=== PATIENT | male | born 1985 | race Caucasian/White ===

== ENCOUNTER 2017-10-15 12:55 | Observation (INO) ==
[2017-10-15] MEDS ORDERED: *HR* Labetalol 100 MG/20 ML MDV IVP ONE (13:10)
[2017-10-15] MEDS ORDERED: *HR* Labetalol 20 MG/4 ML SYRINGE IVP ONE (13:24)
[2017-10-15 13:35] LABS: Basophils # 0.1 K/mcL (0.0-0.2); Eosinophils # 0.2 K/mcL (0.0-0.6); Eosinophils % 2.4 %; Hemoglobin 14.9 g/dL (12.9-16.9); Immature Granulocytes % 0.8 % (0-4); Lymphocytes # 1.3 K/mcL (0.6-4.6); Lymphocytes % 18.8 %; Mean Corpuscular HGB Conc 33.9 g/dL (31.6-35.5); Mean Corpuscular Hemoglobin 29.6 pg (28.0-33.3); Mean Corpuscular Volume 87.3 fL (83.0-100.0); Mean Platelet Volume 9.8 fL (9.4-12.4); Monocytes # 0.7 K/mcL (0.0-1.3); Monocytes % 9.5 %; Neutrophils # 4.8 K/mcL (1.6-8.9); Platelet Count 269 K/mcL (140-400); Red Blood Count 5.04 M/mcL (4.19-5.50); Red Cell Distribution Width 12.3 % (11.5-14.5); Segmented Neutrophils % 67.5 %
[2017-10-15 13:42] LABS: INR 1.1; Prothrombin Time 11.3 Seconds (9.4-12.1)
[2017-10-15 13:44] LABS: Activated Partial Thrombo Time 30.4 Seconds (26.0-36.0)
[2017-10-15 14:05] LABS: Troponin I < 0.03 ng/mL (< 0.04)
[2017-10-15 14:06] LABS: BUN/Creatinine Ratio 13 (6-26); Blood Urea Nitrogen 12 mg/dL (6-20); Calcium 9.6 mg/dL (8.6-10.3); Carbon Dioxide 25 mEq/L (23-29); Chloride 104 mEq/L (98-107); Glucose 94 mg/dL (70-105); Osmolality,Calculated 286 (280-300); Sodium 138 mEq/L (136-145); eGFR For African Americans > 60 (> 60); eGFR For Non-African Americans > 60 (> 60)
[2017-10-15 14:23] LABS: Bilirubin,Urine Negative (Negative); Blood,Urine Negative (Negative); Clarity,Urine Clear (Clear); Color,Urine Yellow (Yellow); Glucose,Urine (UA) Normal (Normal); Ketones,Urine Negative (Negative); Leukocyte Esterase,Urine Negative (Negative); Nitrite,Urine Negative (Negative); Protein,Urine Negative (Neg-Trace); Specific Gravity,Urine 1.017 (1.010-1.025); Urobilinogen,Urine Normal (Normal)
--- NOTE | 2017-10-15 15:17 | Emergency Department Note ---
Disposition Clinical Impression: Elevated blood pressure reading TIA (transient ischemic attack) Qualifiers: Transient cerebral ischemia type: unspecified Qualified Code(s): G45.9 - Transient cerebral ischemic attack, unspecified Disposition: Admitted As Inpatient Referrals: NONE,PCP [Primary Care Provider] - Lary Miguel [Family Provider] - Forms: ED Satisfaction Letter General Adult HPI - General Chief complaint: ED Neuro Symptoms/Deficit Stated complaint: R arm numbess/vision problems Time Seen by Provider: 10/15/17 13:01 Source: patient, family Mode of arrival: ambulatory Limitations: no limitations Nursing Notes Reviewed: Yes Vital Signs Reviewed: Yes - History of Present Illness HPI Narrative: Patient is a 31-year-old white male with a history of Trotter's palsy and hypertension who presents to the emergency department today brought by family after he was complaining of right arm numbness and "just not feeling right". Patient states he was driving his car to the store and while driving noticed some numbness and tingling in his right upper extremity involving the entire right arm. Patient states he moved it around rested up on the steering wheel with really no improvement in the symptoms. Time of onset he thinks was around 11 AM today. Patient states he got to the store ambulated into the store without difficulty walking and reports just not feeling right but unable to describe anything further. Patient states he had an mild generalized headache at the time but no acute visual changes. Patient states he has a history of Trotter's palsy and does have a noticeable droop to the corner of his left mouth but states he has had this for quite some time he always has facial droop on his left denies any slurred speech and states that he has had visual issues in that left eye since the onset of his Trotter's palsy. This is something that he has had evaluated by a number of doctors. Patient denies any significant change from baseline today. Patient denies any chest pain pressure or heaviness , no shortness of breath, no diaphoresis, no lightheadedness or syncope, no vertigo, no weakness of his extremities no difficulty with ambulation. Patient contacted some family members and they drove into the emergency department and patient reports it is about an hour drive from his home to the emergency department and in that timeframe his symptoms had completely resolved. Patient does not report any current arm numbness or tingling and no weakness. Speech is clear and he is otherwise asymptomatic. Pain Scale: 0 - Related Data Allergies Allergy/AdvReac Type Severity Reaction Status Date / Time No Known Allergies Allergy Verified 10/15/17 13:23 All systems ED: reviewed and negative except as stated. Review of Systems: As Per HPI Past Medical History - Past Medical History Medical history: Reports: hypertension - Social History Smoking Status: Former smoker Alcohol use: Reports: none Drug use: Reports: none Physical Exam - General Limitations: no limitations General appearance: alert, in no apparent distress - Head Head exam: atraumatic, normocephalic, normal inspection - Eye Eye exam: Present: normal appearance, PERRL, EOMI - ENT ENT exam: normal exam, normal oropharynx, mucous membranes moist - Neck Neck exam: Present: normal inspection, full ROM - Chest Chest inspection: Present: normal inspection, symmetric chest wall rise - Respiratory Respiratory exam: Present: normal lung sounds bilaterally. Absent: respiratory distress - Cardiovascular Cardiovascular exam: Present: regular rate, normal rhythm, normal heart sounds - Abdominal Exam Abdominal exam: Present: soft, Non-Tender, normal bowel sounds - Extremities Exam Extremities exam: Present: normal inspection. Absent: tenderness, pedal edema, calf tenderness - Back Exam Back exam: Present: normal inspection. Absent: CVA tenderness (R), CVA tenderness (L) - Neurological Exam Neurological exam: Present: alert, oriented X3, CN II-XII intact, normal gait, reflexes normal, other (Patient with left-sided facial droop secondary to previously known Trotter's palsy. Does involve the left forehead.). Absent: motor sensory deficit - Psychiatric Psychiatric exam: Present: normal affect, normal mood - Skin Skin exam: Present: warm, dry, intact, normal color. Absent: diaphoresis Course Course Narrative: She is a 31-year-old white male with history of hypertension and Trotter's palsy who presents to the emergency Department with resolved right upper extremity numbness and tingling. Patient with significantly elevated blood pressure on arrival and when asking about this he does admit to a history of hypertension but states he has not been on his medications because they "never worked". Patient received a dose of labetalol IV and had a nice 25% reduction in MEP and has remained with stable vital signs. Patient has remained asymptomatic and serial neurologic exams show no acute findings. Patient's head CT and laboratory evaluation was within normal limits. We will administer aspirin to the patient and admit the patient for TIA and elevated blood pressure. Vital Signs Temperature 0 F L 10/15/17 13:02 Pulse Rate 89 10/15/17 13:02 Respiratory Rate 18 10/15/17 13:02 Blood Pressure 172/120 10/15/17 13:02 O2 Sat by Pulse Oximetry 99 10/15/17 13:02 Temperature 0 F L 10/15/17 13:02 Pulse Rate 80 10/15/17 13:48 Respiratory Rate 18 10/15/17 13:48 Blood Pressure 167/99 10/15/17 13:48 O2 Sat by Pulse Oximetry 98 10/15/17 13:48 Oxygen Delivery Oxygen Delivery Room Air Medical Decision Making - Medical Records Medical records reviewed: Yes I reviewed the patient's medical records. - Lab Data Lab results reviewed: Yes I reviewed the patient's lab results. Result diagrams: 10/15/17 13:25 10/15/17 13:25 Lab Results 10/15/17 10/15/17 10/15/17 Range/Units 13:25 13:25 13:25 WBC 7.1 (4.3-11.1) K/mcL RBC 5.04 (4.19-5.50) M/mcL Hgb 14.9 (12.9-16.9) g/dL Hct 44.0 (37.5-50.1) % MCV 87.3 (83.0-100.0) fL MCH 29.6 (28.0-33.3) pg MCHC 33.9 (31.6-35.5) g/dL RDW 12.3 (11.5-14.5) % Plt Count 269 (140-400) K/mcL MPV 9.8 (9.4-12.4) fL Immature Gran % 0.8 (0-4) % Seg Neutrophils % 67.5 % Lymphocytes % 18.8 % Monocytes % 9.5 % Eosinophils % 2.4 % Basophils % 1.0 % Neutrophils # 4.8 (1.6-8.9) K/mcL Lymphocytes # 1.3 (0.6-4.6) K/mcL Monocytes # 0.7 (0.0-1.3) K/mcL Eosinophils # 0.2 (0.0-0.6) K/mcL Basophils # 0.1 (0.0-0.2) K/mcL PT 11.3 (9.4-12.1) Seconds INR 1.1 APTT 30.4 (26.0-36.0) Seconds Sodium 138 (136-145) mEq/L Potassium 4.0 (3.5-5.1) mEq/L Chloride 104 (98-107) mEq/L Carbon Dioxide 25 (23-29) mEq/L BUN 12 (6-20) mg/dL Creatinine 0.94 (0.70-1.30) mg/dL Est GFR ( Amer) > 60 (> 60) Est GFR (Non-Af Amer) > 60 (> 60) BUN/Creatinine Ratio 13 (6-26) Glucose 94 (70-105) mg/dL Calculated Osmolality 286 (280-300) Calcium 9.6 (8.6-10.3) mg/dL Troponin I < 0.03 (< 0.04) ng/mL Urine Color (Yellow) Urine Clarity (Clear) Urine pH (5.0-8.0) pH Units Ur Specific [place] (1.010-1.025) Urine Protein (Neg-Trace) mg/dL Urine Glucose (UA) (Normal) mg/dL Urine Ketones (Negative) mg/dL Urine Blood (Negative) Urine Nitrite (Negative) Urine Bilirubin (Negative) Urine Urobilinogen (Normal) mg/dL Ur Leukocyte Esterase (Negative) Ur Culture Indicated? (NO) 10/15/17 Range/Units 14:01 WBC (4.3-11.1) K/mcL RBC (4.19-5.50) M/mcL Hgb (12.9-16.9) g/dL Hct (37.5-50.1) % MCV (83.0-100.0) fL MCH (28.0-33.3) pg MCHC (31.6-35.5) g/dL RDW (11.5-14.5) % Plt Count (140-400) K/mcL MPV (9.4-12.4) fL Immature Gran % (0-4) % Seg Neutrophils % % Lymphocytes % % Monocytes % % Eosinophils % % Basophils % % Neutrophils # (1.6-8.9) K/mcL Lymphocytes # (0.6-4.6) K/mcL Monocytes # (0.0-1.3) K/mcL Eosinophils # (0.0-0.6) K/mcL Basophils # (0.0-0.2) K/mcL PT (9.4-12.1) Seconds INR APTT (26.0-36.0) Seconds Sodium (136-145) mEq/L Potassium (3.5-5.1) mEq/L Chloride (98-107) mEq/L Carbon Dioxide (23-29) mEq/L BUN (6-20) mg/dL Creatinine (0.70-1.30) mg/dL Est GFR ( Amer) (> 60) Est GFR (Non-Af Amer) (> 60) BUN/Creatinine Ratio (6-26) Glucose (70-105) mg/dL Calculated Osmolality (280-300) Calcium (8.6-10.3) mg/dL Troponin I (< 0.04) ng/mL Urine Color Yellow (Yellow) Urine Clarity Clear (Clear) Urine pH 6.0 (5.0-8.0) pH Units Ur Specific [place] 1.017 (1.010-1.025) Urine Protein Negative (Neg-Trace) mg/dL Urine Glucose (UA) Normal (Normal) mg/dL Urine Ketones Negative (Negative) mg/dL Urine Blood Negative (Negative) Urine Nitrite Negative (Negative) Urine Bilirubin Negative (Negative) Urine Urobilinogen Normal (Normal) mg/dL Ur Leukocyte Esterase Negative (Negative) Ur Culture Indicated? NO (NO) - Radiology Data Radiology results reviewed: Yes I reviewed the patient's radiology results. Chest X-Ray 10/15/17 13:11 IMPRESSION: No acute process. D/ / Geovani Florentino MD / Geovani Florentino MD Interpreting Provider: Geovani Florentino MD Head CT 10/15/17 13:16 IMPRESSION: No acute intracranial abnormality. D/ / Nash Archuleta MD / Nash Archuleta MD Interpreting Provider: Nash Archuleta MD - EKG Data EKG #1 EKG attestation: Yes I reviewed and interpreted this EKG. EKG results narrative: EKG interpreted by myself without the benefit of formal cardiology interpretation shows a normal sinus rhythm at 66 bpm with no acute ST or T-wave changes.
[2017-10-15] MEDS ORDERED: Aspirin 325 MG TABLET PO ONE (15:26)
[2017-10-15] MEDS ORDERED: *HR* HYDROcodone/Acet 5/325 mg TABLET PO PRN (16:24)
[2017-10-15] MEDS ORDERED: Naloxone 0.4 MG/ML INJ IVP PRN (16:24)
[2017-10-15] MEDS ORDERED: Acetaminophen 325 MG TABLET PO PRN (16:24)
[2017-10-15] MEDS ORDERED: *HR* Heparin 5,000 UNIT/ML VIAL SQ ONE (16:28)
--- NOTE | 2017-10-15 16:34 | Internal Med History&Physical ---
<CiroManuela Acosta - Last Filed: 10/15/17 16:31> Date of Encounter: 10/15/17 Time of Encounter: 16:31 Assessment and Plan (1) Arm paresthesia, right Current visit: Yes Status: Acute with associated blurred vision and generalized weakness (blurred vision could be secondary to Lasix surgery). Symptoms resolved prior to arrival. Received ASA in ED. Head CT non-acute. Neurologically intact. Brain MRI, echocardiogram , lipid panel, Hgb A1c, TSH pending. Continue ASA (2) Elevated blood pressure reading Current visit: Yes Status: Acute hx HTN and suppose to be on VASHTI. Patient self discontinued as she did not feel was helping the blood pressure. SBP and 170s on arrival. Possibly contributing to presenting symptoms. Received IV labetalol in ED. Hold on further antihypertensives until acute CVA rule out out to allow for permissive hypertension. 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 No evidence of exacerbation. (4) DVT prophylaxis Current visit: Yes Status: Acute heparin Internal Medicine - H&P: HPI Chief complaint: right arm numbness, blurred vision Admitted From: Home Plans for Post Hospital Care: Home History of present illness: Mr. Abraham is a 31 year old male with PMH hypertension and remote Trotter's palsy presented to [facility] on 10/15 18 with complaints of blurred vision, right arm numbness and general weakness. He was placed in observation status for further workup and treatment. Information obtained from chart review and patient report. Patient says he was in his usual state of health until 11:00 this morning when he experienced acute onset of right arm numbness/tingling, blurred vision and a feeling of feeling drained/heavy. Symptoms lasted approximately 1-1/2 hours to 2 hours and resolved without intervention. No alleviating or aggravating factors. Still has blurred vision on my exam but overall improved. No slurred speech, no numbness/tingling or extremity weakness Past Med Surg Social Fam HX - Past Medical History Medical history: hypertension - Past Surgical History Surgical History: orthopedic, other - Social History Smoking Status: Former smoker Alcohol use: none Drug use: none - Additional Family History Additional family history: family hx CVA on maternal and paternal side Internal Medicine - H&P: Meds No Known Home Drugs 10/15/17 [History] 3 Allergy/AdvReac Type Severity Reaction Status Date / Time No Known Allergies Allergy Verified 10/15/17 13:23 All Systems PM: A 10-system review of systems was performed and is negative for pertinent findings except as documented above in the HPI. - Constitutional Constitutional: no chills, no fever(s), no night sweats - EENT Eyes: no change in vision, no discharge, no pain, no photophobia Ears: no ear discharge, no ear pain, no tinnitus Nose, mouth and throat: no dysphagia, no nasal discharge, no neck pain, no sore throat - Cardiovascular Cardiovascular ROS IM: no chest pain, no diaphoresis, no dyspnea, no lightheadedness, no palpitations, no syncope - Respiratory Respiratory: no cough, no dyspnea, no wheezing, no excessive phlegm production - Gastrointestinal Gastrointestinal: no abdominal pain, no diarrhea, no hematemesis, no hematochezia, no melena, no nausea, no vomiting - Musculoskeletal Musculoskeletal ROS IM: no numbness, no tingling - Integumentary Integumentary IM: no rash, no unusual bruising - Neurological Neurological ROS: numbness, paresthesias, weakness, no confusion, no convulsions , no focal weakness, no tingling, no tremor(s) Additional comments: right arm numbness - Hematologic/Lymphatic Hematologic/Lymphatic: no easy bruising - Constitutional Vitals: Temp Pulse Resp BP Pulse Ox 0 F L 71 15 135/92 99 10/15/17 13:02 10/15/17 15:40 10/15/17 15:40 10/15/17 15:40 10/15/17 15:40 General appearance: Present: A&O X 3, no acute distress - Head Head exam: Present: atraumatic, normocephalic - Eye Eye exam: Present: PERRL, conjuntiva pink, sclera anicteric Pupils: Present: PERRL - Neck Neck exam general surgery: Present: supple, trachea midline. Absent: lymphadenopathy - Respiratory Respiratory exam: Present: CTAB. Absent: accessory muscle use, rales, rhonchi, wheezes - Cardiovascular Cardiovascular exam: Present: RRR, +S1, +S2. Absent: diastolic murmur, gallop, rubs, systolic murmur - GI/Abdominal GI/Abdominal exam: Present: normal bowel sounds, soft, no peritoneal signs. Absent: distended, tenderness - Extremities Exam Extremities exam: Present: warm, radial pulses palpable and symmetrical. Absent : calf tenderness, cyanotic, pedal edema - Neurological Exam Neurological exam: Present: CN II-XII intact, oriented X3, no focal deficits. Absent: pronater drift, facial droop, speech deficit - Skin Skin exam: Present: dry, intact Internal Med - H&P Results - Labs CBC & Chem 7: 10/15/17 13:25 10/15/17 13:25 <Alvino Conrad - Last Filed: 10/15/17 20:05> Date of Encounter: 10/15/17 Internal Medicine - H&P: HPI History of present illness: Mr. Abraham is a 31 year old male All Systems PM: A 10-system review of systems was performed and is negative for pertinent findings except as documented above in the HPI. - Constitutional Vitals: Temp Pulse Resp BP Pulse Ox 0 F L 71 14 145/98 99 10/15/17 13:02 10/15/17 15:40 10/15/17 18:13 10/15/17 18:13 10/15/17 15:40 Internal Med - H&P Results - Labs CBC & Chem 7: 10/15/17 13:25 10/15/17 13:25 - Impressions ITS Impressions Brain MRI 10/15/17 16:27 IMPRESSION: No acute infarct, intracranial hemorrhage, or significant mass effect. D/ / 10/15/2017 17:21:34 George Perez MD / jenniffer Interpreting Provider: George Perez MD - Attending Attestation I have personally performed a face to face evaluation on this patient. I have reviewed and agree with the care plan. History and Exam by me shows: Patient presents with right arm numbness and weakness. He states he is right- handed. He appears to favor his left hand currently. He has chronic left facial droop secondary to Trotter's palsy. He is awake alert oriented 3. There is no speech deficit. CT head was negative. Assessment: TIA Plan: Admit to medical service. CVA workup. Alvino Conrad MD
--- NOTE | 2017-10-15 20:32 | Neurology - Consult Note ---
Date of Encounter: 10/15/17 Time of Encounter: 19:30 Assessment and Plan (1) TIA (transient ischemic attack) Current Visit: Yes Status: Acute This is a 29 year old young man with HTN morbid obesity who developed acute onset of blurry vision, and right arm paresthesia lasting less than few hours with total resolution. Symptoms are consistent with TIA. Agree with CVA/TIA work up due to the patient having multiple risk factors including HTN, obesity. Differential diagnosis include anterior circulation TIA, focal neurological deficits related to elevated blood pressure. Agree with starting him on aspirin daily MRI of brain, echo and carotid artery duplex study. Risk factor modification for CVA. check lipid panel and treat with statin if necessary. Patient is obese and also has gasping for air episode in sleep and he should consult PCP for getting a sleep study to assess probable untreated CELSO as an outpatient. total time spent on this patient is approximately 30 minutes Qualifiers: Transient cerebral ischemia type: unspecified Qualified Code(s): G45.9 - Transient cerebral ischemic attack, unspecified History of Present Illness Chief complaint: right arm paresthesia and blurry vision HPI: Mr. Abraham is a 31 year old male with PMH significant for HTN, obesity, history of Trotter's palsy who developed acute onset of right arm numbness, tingling while driving associated with also blurry vision. This occurred this AM around 11 am while he was driving he felt his right arm is numb and he also has blurry vision to both eyes. symptoms lasted about half an hour and by the time he arrived ER his symptoms totally resolved. CT of head showed no acute intracranial abnormality. He was admitted for work up for CVA/TIA. He does have medical history of HTN. He is obese and also reports gasping for air during sleep. He has prior Trotter's palsy during . strong family history of Trotter's palsy reported. he reports one episode of seeing vertigo in the past Past Med Surg Social Fam HX - Past Medical History Medical history: hypertension - Past Surgical History Surgical History: orthopedic, other - Social History Smoking Status: Former smoker Alcohol use: none Drug use: none Medications and Allergies No Known Home Drugs 10/15/17 [History] 3 Allergy/AdvReac Type Severity Reaction Status Date / Time No Known Allergies Allergy Verified 10/15/17 13:23 All Systems: The remainder of the systems were reviewed and are negative Physical Examination - Vital Signs Vital Signs: Initial Vital Signs Temp Pulse Resp BP Pulse Ox 0 F L 89 18 172/120 99 10/15/17 13:02 10/15/17 13:02 10/15/17 13:02 10/15/17 13:02 10/15/17 13:02 - Constitutional General appearance: comfortable - Neurologic Detailed motor examination: full strength in all major muscle groups Motor examination - right side: 12/16: deltoids, biceps, triceps, wrist flexion, wrist extension, security systems integrator, hip flexors, tibialis Anterior, quadriceps, toe extension (EHL), plantarflexion Motor examination - left side: 55: deltoids, biceps, triceps, wrist flexion, wrist extension, hip flexors, security systems integrator, quadriceps, tibialis Anterior, toe extension (EHL), plantarflexion Reflexes: Biceps: 2+, Triceps: 2+, Brachioradialis: 2+, Patella: 2+, Achilles: 2 + Mental Status Examination: awake, alert, oriented to person, oriented to place, oriented to time, follows commands appropriately, answers questions appropriately, no agnosia, no aphasia, no aproxia Cranial nerve examination: PERRL, EOMI, visual loco intact, corneal reflexes brisk symmetrically, sensory to face intact, mastication intact, no facial asymmetry is present, no dysarthria, hearing is intact symmetrically, soft palate elevates bilaterally upon phonation, gag reflex intact, flexes SCM and trapezius muscles symmetrically with full power, tongue protrudes midline, no atrophy or facial fasiculations present Cerebellar examination: no dysmetria, performs finger to nose and heel to gibson symmetrically without ataxia, no gait ataxia, no truncal ataxia, no difficulty with rapid alternating movements Results - Laboratory Findings CBC and BMP: 10/15/17 13:25 10/15/17 13:25 - Diagnostic Findings Additional findings: MR/MR head/brain wo con IMPRESSION: No acute infarct, intracranial hemorrhage, or significant mass effect. CT/CT head/brain wo con IMPRESSION: No acute intracranial abnormality. Consult Discharge Plan - Plan Referrals: NONE,PCP [Primary Care Provider] - Lary Miguel [Family Provider] -
[2017-10-16 05:33] LABS: Hematocrit 42.6 % (37.5-50.1); Hemoglobin 14.7 g/dL (12.9-16.9); Mean Corpuscular HGB Conc 34.5 g/dL (31.6-35.5); Mean Corpuscular Hemoglobin 30.1 pg (28.0-33.3); Mean Corpuscular Volume 87.1 fL (83.0-100.0); Platelet Count 261 K/mcL (140-400); Red Blood Count 4.89 M/mcL (4.19-5.50); Red Cell Distribution Width 12.4 % (11.5-14.5)
[2017-10-16 05:44] LABS: BUN/Creatinine Ratio 12 (6-26); Blood Urea Nitrogen 11 mg/dL (6-20); Calcium 9.2 mg/dL (8.6-10.3); Carbon Dioxide 24 mEq/L (23-29); Chloride 105 mEq/L (98-107); Chol/HDL Ratio 7.5 (0-4.9); Cholesterol 209 mg/dL (< 200); Glucose 90 mg/dL (70-105); HDL Cholesterol 28 mg/dL (40-59); LDL Cholesterol,Calculated 156 mg/dL (0-99); Osmolality,Calculated 287 (280-300); Potassium 3.5 mEq/L (3.5-5.1); Sodium 139 mEq/L (136-145); Triglycerides 123 mg/dL (< 150); eGFR For African Americans > 60 (> 60); eGFR For Non-African Americans > 60 (> 60)
[2017-10-16] MEDS ORDERED: Aspirin Enteric Coated 81 MG Tablet PO SCH (09:00)
--- NOTE | 2017-10-16 09:00 | Neurology Progress Note ---
<Xiang Martinez - Last Filed: 10/16/17 11:02> Date of Encounter: 10/16/17 Time of Encounter: 09:00 Assessment and Plan (1) TIA (transient ischemic attack) Current Visit: Yes Status: Acute Patient's symptoms correlate with potential TIA, risk factors include hypertension and obesity and possible sleep apnea. MRI of the brain is negative , echocardiogram demonstrates ejection fraction of 65%, mild diastolic dysfunction, no PFO. CT of the brain without concerning findings. Continue evaluation for potential cardiac arrhythmia such as proximal atrial fibrillation should be evaluated. Patient appears at baseline with no neurologic deficits at this time. It is important that Mr. Abraham establishes care with a primary care provider and undergoes treatment of his chronic medical conditions. Qualifiers: Transient cerebral ischemia type: unspecified Qualified Code(s): G45.9 - Transient cerebral ischemic attack, unspecified (2) Arm paresthesia, right Current Visit: Yes Status: Acute Resolved. Subjective Principal diagnosis: Right upper extremity weakness, visual changes Interval history: Mr. 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 He has known past medical history of hypertension which she currently is not taking any medications for, possible sleep apnea, denies any history of smoking. He feels that his right upper extremity strength is regained its normal strength with minimal tingling in his fingertips and no motor deficits. Regarding his visual changes he thinks that they might be more chronic in nature , history of Lasix eye surgery and revision on the right eye twice with occasional blurring on the left. Patient denies any history of stroke, atrial fibrillation known diagnosis, or cardiac defects. I will along discussion regarding treatment of his hypertension and sleep study for potential sleep apnea as preventative measures. Mr. Abraham demonstrates understanding of the importance of treatment of his chronic medical conditions. His family at bedside is supportive, They are requesting carotid Dopplers for complete workup of his symptoms. Objective - Constitutional Vitals: Temp Pulse Resp BP Pulse Ox 98.4 F 66 16 128/79 99 10/16/17 06:52 10/16/17 06:52 10/16/17 06:52 10/16/17 06:52 10/16/17 06:52 General appearance: Present: cooperative, A&O X 3, no acute distress, answers questions appropriately - Head Head exam: Present: atraumatic, normocephalic - Eye Eye exam: Present: PERRL, conjuntiva pink, sclera anicteric Pupils: Present: PERRL - Extremities Exam Extremities exam: Present: warm, radial pulses palpable and symmetrical. Absent : calf tenderness, cyanotic, pedal edema - Neurological Exam Sensorimotor examination: Present: intact Motor Examination: Present: full strength in all major muscle groups Motor examination - right side: 5/5: deltoids, biceps, triceps, wrist flexion, wrist extension, electro winning operator, hip flexors, tibialis Anterior, quadriceps, toe extension (EHL), plantarflexion Motor examination - left side: 5/5: deltoids, biceps, triceps, wrist flexion, wrist extension, hip flexors, electro winning operator, quadriceps, tibialis Anterior, toe extension (EHL), plantarflexion Sensation intact: Present: intact Reflex and gait examination: intact Reflexes: Biceps: 2+, Triceps: 2+, Brachioradialis: 2+, Patella: 2+, Achilles: 2 + Mental Status Examination: Present: awake, alert, oriented to person, oriented to place, oriented to time, follows commands appropriately, answers questions appropriately, no agnosia, no aphasia, no aproxia Cranial nerve examination: Present: PERRL, EOMI, visual loco intact, corneal reflexes brisk symmetrically, sensory to face intact, mastication intact, no facial asymmetry is present, no dysarthria, hearing is intact symmetrically, soft palate elevates bilaterally upon phonation, gag reflex intact, flexes SCM and trapezius muscles symmetrically with full power, tongue protrudes midline, no atrophy or facial fasiculations present Cranial Nerve Exam: 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.) Cerebellar examination: Present: no dysmetria, performs finger to nose and heel to gibson symmetrically without ataxia, no gait ataxia, no truncal ataxia, no difficulty with rapid alternating movements Results - Laboratory Findings CBC and BMP: 10/16/17 04:05 10/16/17 04:05 Abnormal lab findings: Abnormal lab results Cholesterol 209 mg/dL (< 200) H 10/16/17 04:05 LDL Cholesterol, Calc 156 mg/dL (0-99) H 10/16/17 04:05 HDL Cholesterol 28 mg/dL (40-59) L 10/16/17 04:05 Cholesterol/HDL Ratio 7.5 (0-4.9) H 10/16/17 04:05 Consult Discharge Plan - Plan Instructions: Sleep Apnea Syndrome (DC), Hyperlipidemia (DC) Referrals: NONE,PCP [Primary Care Provider] - <Karina Lopez I - Last Filed: 10/16/17 17:27> Date of Encounter: 10/16/17 Assessment and Plan (1) TIA (transient ischemic attack) Current Visit: Yes Status: Acute I examined this patient and my medical decision-making was reviewed with the Resident Physician, I agree with the documented findings, disposition and treatment plan as described except to the extent set forth below Though there was a concern that symptoms could be related to a TIA but apparently did not have much risk factors for a TIA other possibility that this could be related to elevated blood pressure or could be a migrainous phenomenon. At this time it is not clear that indeed it was a TIA or not. He is getting a stroke workup awaits carotid duplex echo is negative MRI of the brain is negative. Recommend lifestyle modification and follow-up with neurology as an outpatient with Dr. Gibson in 4-6 weeks Karina Lopez MD Qualifiers: Transient cerebral ischemia type: unspecified Qualified Code(s): G45.9 - Transient cerebral ischemic attack, unspecified Objective - Constitutional Vitals: Temp Pulse Resp BP Pulse Ox 98.7 F 86 16 130/75 99 10/16/17 15:00 10/16/17 15:00 10/16/17 15:00 10/16/17 15:00 10/16/17 15:00 Results - Laboratory Findings CBC and BMP: 10/16/17 04:05 10/16/17 04:05 Abnormal lab findings: Abnormal lab results Cholesterol 209 mg/dL (< 200) H 10/16/17 04:05 LDL Cholesterol, Calc 156 mg/dL (0-99) H 10/16/17 04:05 HDL Cholesterol 28 mg/dL (40-59) L 10/16/17 04:05 Cholesterol/HDL Ratio 7.5 (0-4.9) H 10/16/17 04:05
[2017-10-16 11:50] LABS: Hemoglobin A1C 5.1 %
[2017-10-16] MEDS ORDERED: *HR* Heparin 5,000 UNIT/ML VIAL SQ SCH (14:00)
[2017-10-16 15:13] VITALS: BP 130/75
--- NOTE | 2017-10-16 15:33 | Discharge Summary ---
- NOTES TO OUTPATIENT PROVIDER Notes to Outpatient Provider: Recommend outpatient sleep study. Recommend repeating lipid panel in 3-6 months. Orders not resulted at time of discharge: Pending orders 10/16/17 10:39 EV carotid duplex imaging BI Stat Date of Encounter: 10/16/17 Time of Encounter: 15:31 - Discharge Diagnosis (1) Arm paresthesia, right Priority: Primary Status: Resolved (2) Elevated blood pressure reading Priority: Primary Status: Acute (3) History of Trotter's palsy Priority: Secondary Status: Chronic Hospital course: Mr. Abraham is a 31 year old male with past medical history hypertension and Trotter 's palsy presented to [facility] on 10/15/17 with complaints of right arm paresthesia and blurred vision. He was placed in observation status for CVA rule out. He underwent head CT which was unremarkable, brain MRI without evidence of acute infarct or ischemia. TTE with preserved EF, no wall motion abnormalities; no PFO or cardiac source of emboli. Bilateral carotid dopplers with non-stenotic plaque bilaterally. Sx's possibly secondary to anxiety and/or elevated BP. Blurred vision appears to be chronic per patient and possibly secondary lasix surgery. He was discharged home in stable condition with outpatient follow-up. He was advised to return to ER if sx's recur. Discharge discussed with: patient - Time Spent with Patient Total time spent providing and/or coordinating discharge services: - Discharge Medications Home Medications: No Known Home Drugs 10/15/17 [History] Allergies/Adverse Reactions: 3 Allergy/AdvReac Type Severity Reaction Status Date / Time No Known Allergies Allergy Verified 10/15/17 13:23 Date of admission: 10/15/17 15:47 Primary care physician: PCP NONE Discharging clinician: Manuela Tanner Anticipated date of discharge: 10/16/17 - Constitutional Vitals: Temp Pulse Resp BP Pulse Ox 98.7 F 86 16 130/75 99 10/16/17 15:00 10/16/17 15:00 10/16/17 15:00 10/16/17 15:00 10/16/17 15:00 General appearance: Present: A&O X 3, no acute distress - Head Head exam: Present: atraumatic, normocephalic - Eye Eye exam: Present: PERRL, conjuntiva pink, sclera anicteric Pupils: Present: PERRL - Neck Neck exam general surgery: Present: supple, trachea midline. Absent: lymphadenopathy - Respiratory Respiratory exam: Present: CTAB. Absent: accessory muscle use, rales, rhonchi, wheezes - Cardiovascular Cardiovascular exam: Present: RRR, +S1, +S2. Absent: diastolic murmur, gallop, rubs, systolic murmur - GI/Abdominal GI/Abdominal exam: Present: normal bowel sounds, soft, no peritoneal signs. Absent: distended, tenderness - Extremities Exam Extremities exam: Present: warm, radial pulses palpable and symmetrical. Absent : calf tenderness, cyanotic, pedal edema - Neurological Exam Neurological exam: Present: CN II-XII intact, oriented X3, no focal deficits, facial droop (Has chronic left-sided facial droop from Trotter's palsy). Absent: pronater drift, speech deficit - Skin Skin exam: Present: dry, intact - Patient Status Disposition: Home, Self-Care Condition: Good Functional capacity at discharge: independent ambulation Overall status at discharge: patient is back to baseline - Discharge Instructions Instructions: Sleep Apnea Syndrome (DC), Low Fat Diet (GEN), Hyperlipidemia (DC ) Follow Up With: NONE,PCP [Primary Care Provider] - Forms: Inpatient Work/School Release - Diet and Activity Activity: increase activity as tolerated Diet: advance to your usual diet
--- NOTE | 2017-10-17 18:08 | Electrocardiograph Report ---
[address] [address] Test Date: 2017-10-15 Pat Name: Allen Abraham Department: 102 Room: 3A12 Gender: M Supply Chain Technician: : 1985 Requested By: Yana Sung Order Number: [id number] Reading MD: Abby Sherwood Measurements Intervals [place] Rate: 66 P: 31 VT: 167 QRS: 41 QRSD: 97 T: 53 QT: 370 QTc: 383 Interpretive Statements SINUS RHYTHM Electronically Signed On 10-17-2017 18:06:52 EST by Abby Sherwood
== END 2017-10-16 18:48 | disposition home or self-care (01) ==
LOC: EMEROO 12:55 → 3ANU 12:55 → SUATTDRO 15:47 → 3ANU 18:14
PROVIDERS: ADMIT Nurse Practitioner Family; ATTEND Registered Nurse